=== PATIENT | female | born 1945 | race Caucasian/White ===

== ENCOUNTER 2025-06-30 18:55 | Emergency (ER) | payer OTHER, SELFPAY ==
[2025-06-30] VITALS (35 sets, daily range): BP systolic 117–175; BP diastolic 54–148; BMI 40.7
[2025-06-30 20:06] LABS: Hematocrit 38.7 % (37.0-47.0); Hemoglobin 12.6 g/dL (12.0-16.0); Mean Corp Hgb Conc. 32.6 g/dL (33.0-37.0); Mean Corpuscular Volume 86.8 fL (81.0-99.0); Nucleated Red Blood Cells % 0 %; Platelet Count 154 10^3/uL (130-400); Red Cell Dist. Width 13.2 % (11.5-14.5)
[2025-06-30 20:17] LABS: ALT (SGPT) 19 U/L (0-35); AST (SGOT) 25 U/L (14-36); Albumin 4.5 g/dl (3.5-5.0); Alkaline Phosphatase 78 U/L (38-126); Blood Urea Nitrogen 18 mg/dl (7-17); Calcium 9.0 mg/dl (8.4-10.2); Carbon Dioxide 22 mmol/L (22-30); Chloride 110 mmol/L (98-107); Estimated Creatinine Clearance 48 ml/min; Glucose 127 mg/dl (70-99); Potassium 4.1 mmol/L (3.5-5.1); Sodium 140 mmol/L (135-145); Total Protein 6.8 g/dl (6.3-8.2); eGFR 57.66
[2025-06-30] MEDS: SUBLIMAZE 50 MCG IV (20:27)
--- NOTE | 2025-06-30 22:21 | ED.GENMED ---
History of Present Illness
General
Chief Complaint: Musculo-Skeletal Complaint
Source: patient
Exam Limitations: none
Time Seen by Provider: 06/30/25 20:11
Nursing documentation reviewed up to this point in time: agreed with
History of Present Illness
History of Present Illness:
Patient status post right hip surgery and subsequent femur fracture, repaired 9 years ago at [facility], presents to ED secondary to sudden onset of right hip pain, when she bent down to put her shoes on. Denies falling down. Denies any
other injuries. Patient presents with right lower leg deformity with pain.
Review of Systems
Review of Systems
Allergies reviewed?: Yes
All Other Systems: ROS reviewed and negative except as documented in HPI and ROS
Constitutional: Reports no symptoms
ABD/GI: Reports no symptoms
Musculoskeletal: Reports other (Right hip pain)
Skin: Reports no symptoms
Neurological: Reports no symptoms
Phy Exam
Physical Exam
Physical Exam:
Physical Exam
General: mild painful distress, not acutely ill. afebrile
Head: nc/at. eomi
Neck: supple. normal range of motion
Neuro: alert and oriented x 3. no focal neurological deficits
Skin: no rash
Psychiatric: well kept. interactive and cooperative
Extremities: right hip, shortened and externally rotated
Course
Orders/Labs/Results
Orders:
Orders
06/30/25 19:39
Cardiac Monitoring- Treatment ONCE
06/30/25 19:40
Electrocardiogram (*1) Urgent
Reason for Study: Other
Other Reason for Exam: trauma
EKG- Treatment ONCE
CR Hip - RT w/wo Pel 2-3 Vw* Urgent
Comment: include pelvis
Reason For Exam: fall
Include a pelvis x-ray?: Yes
06/30/25 19:51
Type+Screen Urgent
Complete Blood Count/With Diff Urgent
Comprehensive Metabolic Panel Urgent
06/30/25 20:21
Fentanyl Citrate/Pf [Sublimaze] 50 mcg IV NOW STA
06/30/25 20:22
Ondansetron Injectable [Zofran] 4 mg .ROUTE .STK-MED ONE
06/30/25 21:11
Propofol [Diprivan] 20 ml .ROUTE .STK-MED
06/30/25 22:16
Hip, Right 1 View [CR Hip - RT without Pel 1 Vw] Urgent
Comment:
Reason For Exam: post reduction
06/30/25 22:49
HYDROmorphone [Dilaudid] 0.5 mg IV NOW STA
07/01/25 00:14
HYDROmorphone [Dilaudid] 0.5 mg IV Q3HPRN PRN
Abnormal Lab Results
06/30/25
19:51
MCHC 32.6 L g/dL
(33.0-37.0)
Abs Immat Gran (auto) 0.1 H 10^3/uL
(0-0.05)
Absolute Neuts (auto) 6.9 H 10^3/uL
(1.4-6.5)
Absolute Lymphs (auto) 1.0 L 10^3/uL
(1.2-3.4)
Immature Gran % 0.7 H %
(0-0.5)
Neutrophils % 81.8 H %
(42.2-75.2)
Lymphocytes % 12.0 L %
(20.5-51.1)
Chloride 110 H mmol/L
(98-107)
BUN 18 H mg/dl
(7-17)
Glucose 127 H mg/dl
(70-99)
06/30/25 19:51
06/30/25 19:51
Vital Signs
Initial and Last Documented VS:
Initial Vital Signs
Pulse Pulse Ox
87 97
06/30/25 19:01 06/30/25 19:01
Last Documented Vital Signs
Temp Pulse Resp BP Pulse Ox
98.1 F 102 17 136/72 94
06/30/25 22:46 07/01/25 04:00 07/01/25 04:00 07/01/25 04:00 07/01/25 04:00
Procedures
Moderate Sedation
ASA Risk Score: Class I
Chart and allergies reviewed: Yes
Consent for anesthesia obtained: Yes
Time out completed (validating right patient & procedure): Yes
Moderate Sedation Start Time(when first medication is given): 21:42
History of difficult intubation: No
Airway free of obstruction: Yes
Patient has a gag reflex: Yes
Patient is able to open mouth: Yes
Patient has no dentures: Yes
Patient has no loose teeth: Yes
Medication administered by Provider during Moderate Sedation: IV Propofol (mg)
Total dose administered: 60
Time drug administered: 21:42
Moderate Sedation Procedure End Time: 21:57
Comment: 2nd conscious sedation provided with use of 80mg propofol
MDM/Problems Addressed
MDM/Problems Addressed:
History, exam, and x-ray consistent with right hip dislocation.
Procedure consent on the chart.
After propofol administration, hip reduction attempted without success x 2.
Discussed with on-call [facility] orthopedic surgeon, Dr. Landry, as patient also has had left hip replacement with Dr. Zavaleta of [facility] 5 years ago. Recommends patient to be transferred to surgeon who operated on the patient. As such,
spoke with Dr. Carmona, covering for @ [facility], who agreed to accept transfer.
Transfer consent on the chart. Patient remains neurologically intact.
*Pulse Oximetry
SaO2: 97
Oxygen Mode of Delivery: Room air
Patient hypoxic: no
*Critical Care Note
Total Time (30-74mins, 75-104mins- exclusive of procedures): Not Applicable
ED Attending Note
-
Portions of this chart may have been created with voice recognition software.� Occasional wrong word or��sound alike� substitutions may have occurred due to the inherent limitations of voice recognition software.
Discharge Plan
Departure
Patient Disposition: Acute Care Hospital
Date of Disposition: 06/30/25
Time of Disposition: 23:11
Discharge Problem:
Dislocation, hip
Prescriptions:
No Action
omeprazole 20 MG capsule,delayed release(DR/EC)
20 mg PO HS
propylthiouracil 50 MG tablet
50 mg PO BID
metoprolol tartrate 50 MG tablet
50 mg PO BID
sennosides [senna] 1 TABLET tablet
2 tab PO BID 0RF
docusate sodium 100 MG capsule
100 mg PO BID 0RF
aspirin 81 MG tablet,chewable
81 mg PO BID Qty: 1 0RF
Rx Instructions:
x4 weeks for blood clot prevention, then resume once daily dosing
acetaminophen 500 MG tablet
1,000 mg PO Q6H Qty: 1 0RF
Rx Instructions:
Do not exceed >4000 mg daily
Lisinopril
5 mg PO BID
Rx Instructions:
Hold if systolic blood pressure <130 while taking oxycodone
Referrals:
Asim Rouse MD [Family Provider, Family Practice]
Hospital Transfer
Other hospital: [facility]
I certify that the patient requires transfer: Yes
Discussed case with accepting physician:
Reason for transfer: medical necessity, availability of service and specialties available
Interventions
Interventions:
*Risk Screen - Suicide Last Done: 06/30/25 19:17
*General Assessment Last Done: 06/30/25 19:17
*Neglect/Abuse Screening Last Done: 06/30/25 19:17
*ED- Fall Risk Assessment Last Done: 06/30/25 19:17
*ED COVID-19 Vaccine History Last Done: 06/30/25 19:17
*Nursing Disposition Last Done: 07/01/25 04:30
ED-Musculoskeletal Assessment Last Done: 06/30/25 19:27
Discharge Date and Time
Discharge Date/Time: 07/01/25 04:32
Print Language: MALAY
[2025-06-30] MEDS: DILAUDID 0.5 MG IV (22:56)
[2025-07-01] VITALS (14 sets, daily range): BP systolic 104–156; BP diastolic 67–89
[2025-07-01] MEDS: DILAUDID 0.5 MG IV ×2 (00:22→04:15)
== END 2025-07-01 04:32 | disposition short-term general hospital (02) ==
LOC: EMR 18:55
PROVIDERS: Emergency Medicine; EMERGENCY PHYSICIAN Emergency Medicine; FAMILY PHYSICIAN Family Medicine
DX: T84.020A Dislocation of internal right hip prosthesis, initial encounter (principal); X50.1XXA Overexertion from prolonged static or awkward postures, initial encounter
CPT/HCPCS: 27265; 99152; 99285; 96374; 96375; 96376; 73501; 73502; 80053; 85025; 86850; 86900; 86901; 93005